=== PATIENT | female | born 1975 | race Caucasian/White ===

== ENCOUNTER → 2016-10-28 | Day surgery (SDC) | payer OTHER ==
[~2016-10-28] VITALS: Ht 154.9 cm; Wt 103.0 kg
[~2016-10-28] MED LIST: ADVAIR 250-501 EACH INH; BUTALB-CAFF-AC1 EACH PO; ESCITALOPRAM OX20 MG PO; GABAPENTIN300 M2 PO; LASIX20 M1 PO; LUPRON DEPOT3.75 M1 INJ; MONTELUKAST SOD10 M1 PO; NORCO 5-325 TA1 EACH PO; PERCOCET 5-3251 EACH PO; PROAIR HFA8.5 GM INH; TRAZODONE HCL50 M1 PO
--- NOTE | 2016-10-28 09:42 | Operative Report ---
Operative/Inv Procedure Report Surgery Date: 10/28/16 Name of Procedure: Diagnostic laparoscopy peritoneal washings Pre-Operative Diagnosis: Pelvic pain Post-Operative Diagnosis: Same and fibroids Estimated Blood Loss: less than 50ml Surgeon/Product Safety Lead: JOSH HUANG MD Anesthesia: general endotracheal tube, block Operative/Procedure Note Note: Procedure note patient was taken the operating room placed on position after adequate anesthesia patient placed in dorsolithotomy position the vagina from dorsal fashion bladder was catheterized examination under anesthesia performed a single-tooth tenaculum placed on the Intralipid cervix gentle downward traction [place]on cannula was left in place at this point the surgeon regowned and gloved at the level the umbilicus a stab incision was made to allow for the entry of Veress needle the abdomen was insufflated possibly fully Z CO2 to liver edge dullness which point the Veress needle was removed a 10 mm trocar was inserted atraumatically the umbilicus sheath remained placed through that sheath laparoscope was placed under direct visualization a 5 mm trocar was placed 2 fingerbreadths of symptoms pubis on through that a peanut was placed the organs removed about pictures were taken this point peritoneal fluid was was obtained by putting in washings with normal saline this was sent to pathology once instruments removed from the abdomen under direct visualization the incision at the umbilicus was oversewn using 0 skin was reapproximated both incisions with interrupteds of 3-year-old Marcaine was injected underneath both incisions at the end the case sterile dressings were applied on patient tolerated this well all instruments removed from the vagina patient was returned spine position the counts were correct on she was extubated and transported recovery room awake alert with counts correct Findings: Tubes and ovaries bilaterally however the uterus is 14 weeks' size with 1 cm fibroids throughout the adhesions into the left paracolic gutter was normal anatomy
== END ==
LOC: STS 01:38
DX: R10.2 Pelvic and perineal pain (principal); D25.9 Leiomyoma of uterus, unspecified; F17.200 Nicotine dependence, unspecified, uncomplicated
CPT/HCPCS: 88305; J0131; J1630; J2250

== ENCOUNTER 2017-04-21 03:11 | Inpatient (IN) | payer OTHER ==
[~2017-04-21] VITALS: Ht 152.4 cm; Wt 103.4 kg
[2017-04-21 16:00] VITALS: BP 128/80
[2017-04-21 18:14] VITALS: BP 145/90
[2017-04-21 18:36] LABS: ABSOLUTE BASOPHIL COUNT 0 /CUMM (0.0-0.2); ABSOLUTE EOSINOPHIL COUNT 0 /CUMM (0.0-0.7); ABSOLUTE GRANULOCYTE CT 15.8 /CUMM (1.4-6.5); ABSOLUTE LYMPH COUNT 0.5 /CUMM (1.2-3.4); ABSOLUTE MONOCYTE COUNT 0.1 /CUMM (0.10-0.60); BASOPHIL % 0 % (0.0-2.0); EOSINOPHIL % 0 % (0-5); GRANULOCYTE % 96.3 % (42.2-75.2); MEAN CORPUSCULAR HGB 28.1 PG (27.0-31.0); MEAN CORPUSCULAR HGB CONC 32.3 G/DL (33.0-37.0); MEAN CORPUSCULAR VOLUME 87.2 FL (81.0-99.0); MEAN PLATELET VOLUME 9.8 FL (7.4-10.4); PLATELET COUNT 250 /CUMM (130-400); RED BLOOD CELL CT 4.71 /CUMM (4.20-5.40)
[2017-04-21 20:00] VITALS: BP 136/54
[2017-04-21 20:09] VITALS: BP 136/54
[2017-04-21 22:09] VITALS: BP 116/72
[2017-04-21 23:59] VITALS: BP 118/74
[2017-04-22] VITALS (7 sets, daily range): BP systolic 100–142; BP diastolic 52–86
[2017-04-22 08:17] LABS: ABSOLUTE BASOPHIL COUNT 0 /CUMM (0.0-0.2); ABSOLUTE EOSINOPHIL COUNT 0 /CUMM (0.0-0.7); ABSOLUTE GRANULOCYTE CT 15.5 /CUMM (1.4-6.5); ABSOLUTE LYMPH COUNT 0.7 /CUMM (1.2-3.4); ABSOLUTE MONOCYTE COUNT 0.8 /CUMM (0.10-0.60); BASOPHIL % 0.1 % (0.0-2.0); EOSINOPHIL % 0.1 % (0-5); HEMATOCRIT 37.2 % (37-47); MEAN CORPUSCULAR HGB 28.4 PG (27.0-31.0); MEAN CORPUSCULAR HGB CONC 32.5 G/DL (33.0-37.0); MEAN CORPUSCULAR VOLUME 87.4 FL (81.0-99.0); MEAN PLATELET VOLUME 9.6 FL (7.4-10.4); PLATELET COUNT 264 /CUMM (130-400); RBC DISTRIBUTION WIDTH 15.1 % (11.5-14.5); RED BLOOD CELL CT 4.25 /CUMM (4.20-5.40)
--- NOTE | 2017-04-22 09:20 | PN- Post Delivery/GYN ---
Subjective Subjective: NO COMPLAINTS SURGERY REVIEWED WITH PT Objective Last 24 Hrs of Vital Signs/I&O Vital Signs Date Time Temp Pulse Resp B/P B/P Pulse O2 O2 Flow FiO2 Mean Ox Delivery Rate 04/22 0610 98.1 62 20 100/56 94 Nasal 2.0L Cannula 04/22 0419 98.0 70 20 110/52 97 Nasal 2.0L Cannula 04/22 0205 98.7 77 20 100/60 93 Nasal 2.0L Cannula 04/22 0000 Nasal 2.0L Cannula 04/21 2359 98.4 62 17 118/74 93 04/21 2209 97.8 70 16 116/72 93 04/21 2009 98.6 64 20 136/54 92 Nasal 2.0L Cannula 04/21 2000 98.6 64 20 136/54 04/21 1909 Nasal 2.0L Cannula 04/21 1906 95 Nasal 2.0L Cannula 04/21 1814 98.0 65 16 145/90 95 04/21 1600 98.5 65 16 128/80 04/21 1600 92 Nasal 2.0L Cannula 04/21 1600 98.5 65 16 128/80 92 Nasal 2.0L Cannula Intake & Output 04/22 1600 04/22 0800 04/22 0000 Intake Total 1000 375 Output Total 1100 300 Balance -100 75 Intake, IV 1000 375 Output, Urine 1100 300 Patient 228 lb Weight Weight Reported by Patient Measurement Method Physical Exam: PE OBESE WF IN NAD ABD SOFT INCISION CDI EXT -EDEMA-VIJAY Assessment/Plan Assessment/Plan ASSESS S/P SUPRACERVICAL HYST PLAN CONT POC CHECK CBC
[2017-04-22 10:12] LABS: WHITE BLOOD CELL COUNT 17.1 /CUMM (4.8-10.8)
[2017-04-23 06:05] VITALS: BP 140/87
[2017-04-23] MEDS ORDERED: IBUPROFEN800 M1 PO (10:50)
[2017-04-23] MEDS ORDERED: PERCOCET 5-3251 EACH PO (10:50)
--- NOTE | 2017-04-25 13:15 | Operative Report ---
Operative/Inv Procedure Report Surgery Date: 04/21/17 Name of Procedure: Supracervical hysterectomy bilateral salpingo-oophorectomy Pre-Operative Diagnosis: Pelvic pain Post-Operative Diagnosis: Same Estimated Blood Loss: 500 WE ARE Surgeon/Regional Loss Prevention Manager: REINA ROMO,JOSH Lopez and Uriah Urban Anesthesia: general endotracheal tube Operative/Procedure Note Note: Patient was taken the operating room placed on position after adequate anesthesia patient placed in dorsolithotomy position vagina prepped draped so fashion bladder was catheterized examination anesthesia performed patient was prepped and draped so fashion Dr. Lorena De Guzman placed the Chang on a F3 perform cystoscopy and placed stents I at this point the patient was returned spine position through Pfannenstiel skin incision 2 fingerbreadths substance pubis and cut carried down to rectus fascia which was cut in curvilinear fashion direction peritoneal cavity is entered high into the abdomen patient tolerated that well at this point the peritoneum was entered bluntly as well as sharply C[place]rena [place] was placed in usual fashion uterus is identified and a fourth tenaculum was used to elevate the uterus round ligament was suture-ligated 0 on the right 0 left on the bladder flap was developed sharply this point sequentially cervical branches uterine artery clamped and cut to level of the external os and oversewn using 0 specimen was removed using a Bovie on at this point the on right ovary was picked up on clamped 2 oversewn 2 and removed left ovary and tube were removed clamped 2 oversewn times to using 0 the left ovary and tube were removed cervical stump was oversewn running locking suture of 0 was indicated interrupted [id number] hemostasis was apparent at this point the eye was area close amounts once until clear was found to be hemostatic Nayana was applied to cervical stump hemostasis was apparent all instruments and lap pads removed from the abdomen the counts correct patient was returned spine position peritoneum was reapproximated 0 the fascia was reapproximated to continue sutures 1 skin was reapproximated yaakov after subcutaneous tissue at the Bovie coagulated at the end the case the stents removed bilaterally tip intact urine was clear patient was awakened from anesthesia and transferred recovery room awake alert counts correct
[2017-04-25 17:24] LABS: WHITE BLOOD CELL COUNT 16.4 /CUMM (4.8-10.8)
--- NOTE | 2017-04-26 10:20 | Operative Report ---
Operative/Inv Procedure Report Surgery Date: 04/21/17 Name of Procedure: cystoscopy: bilateral stent insertion Pre-Operative Diagnosis: pelvic pain: fibroids Post-Operative Diagnosis: same Estimated Blood Loss: scant Surgeon/Resaw Machine Operator: RAMYA OAKES MD: UROLOGY Anesthesia: general endotracheal tube Specimens: 18 FR NATHAN: BILAT STENTS-TO BE DC'D BY DR. MOY AT END OF SURGERY Complications: NONE Operative/Procedure Note Note: The patient was taken to the operating room and placed on the OR table in supine position. Timeout was performed, with the patient awake, to confirm identify, planned procedures, anesthesia, antibiotics and other pertinent suraj-operative information. After adequate anesthesia, and IV antibiotics, the patient was placed in lithotomy Yellow-fin stirrups. She was then draped and prepped in the usual surgical fashion, including a vaginal prep. A 22 Turkish cystoscope sheath with a 30 angle lens was inserted into the bladder without significant difficulty. The bladder was thoroughly and systematically examined, and was noted to be free of tumor, free of stone, free of endometriosis. Both ureteral orifices were in their orthotopic positions with clear reflux bilaterally. Under direct visualization the left orifice was intubated with a 5 Turkish whistle-tip catheter, which was advanced easily into the left kidney pelvis. The right ureteral orifice was intubated with a second 5 Turkish ureteral whistle tip catheter, and advanced into the right renal pelvis without difficulty. For identification purposes the blue marked stent went into the left kidney and the right ureteral stent was marked red. Urine culture was obtained and sent to pathology. The cystoscope was then removed leaving both stents in proper place. An 18 Turkish Nathan catheter was inserted draining clear fluid and 10 mL of sterile water was then placed in the balloon. The ends ureteral stents, which protruded externally, were taped to the Nathan catheter in order to secure their position. The individual ureteral stents were then connected to their individual drainage devices. The patient tolerated the procedure well. All sponge needle and instrument count were correct at the end of this procedure. The patient was then placed in supine position with Venodyne's in place. At this point, Dr. Moy was able to proceed with her patient's surgery. Findings: NORMAL BLADDER Discharge Disposition: PROCEED WITH DR. MOY CC: RAMYA OAKES MD
== END 2017-04-23 12:03 | DRG 513 ==
LOC: SDA 03:11 → 2NB 03:11 → ENRESERV 14:43 → CANRESERV 14:43 → ENRESERV 15:38 → ENTRNSPT 15:38 → EDTRNSPT 15:39 → 2NB 15:56 → CMPTRNSPT 16:37 → ENPENDDIS 04-23 11:20 → 2NB 04-23 12:03
PROVIDERS: ADMIT Specialist
PROC: 0UT90ZZ Resection of Uterus, Open Approach (ICD-10-PCS; principal; 2017-04-21)
PROC: 0UT20ZZ Resection of Bilateral Ovaries, Open Approach (ICD-10-PCS; 2017-04-21)
PROC: 0UT70ZZ Resection of Bilateral Fallopian Tubes, Open Approach (ICD-10-PCS; 2017-04-21)
PROC: 0T788DZ Dilation of Bilateral Ureters with Intraluminal Device, Via Natural or Artificial Opening Endoscopic (ICD-10-PCS; 2017-04-21)
DX: N80.0 Endometriosis of uterus (principal); E66.9 Obesity, unspecified; Z68.41 Body mass index [BMI] 40.0-44.9, adult
CPT/HCPCS: 2NBP; 36415; 87086; J0131; J0694; J1170; J1200; J1650; J1885; J3490